=== PATIENT | male | born 1960 | race Caucasian/White ===

== ENCOUNTER 2016-11-16 02:39 | Emergency (ER) | payer OTHER ==
[2016-11-16] MEDS ORDERED: PROPARACAINE HCL 0.5% 300 GTTS/BOT SOLN.DROP ONE (03:09)
[2016-11-16] MEDS ORDERED: ERYTHROMYCIN OPHTH OINT 0.5% 1 APPLIC/TUBE ONE ×2 (03:49→04:01)
== END 2016-11-16 04:21 | disposition home or self-care (01) ==
LOC: ED 02:39
DX: T15.92XA Foreign body on external eye, part unspecified, left eye, initial encounter (principal); X58.XXXA Exposure to other specified factors, initial encounter; Y93.89 Activity, other specified
CPT/HCPCS: 99283; 99282; A9270 ×3

== ENCOUNTER 2016-11-17 11:18 | Emergency (ER) | payer OTHER ==
[2016-11-17] MEDS ORDERED: CEPHALEXIN 500 MG CAPSULE ONE (11:56)
--- NOTE | 2016-11-17 12:23 | RAD ---
HISTORY: drill bit injury to left wrist, at base of first metacarpal. Initial encounter. COMPARISON: None. TECHNIQUE: three view. Wrist Laterality:left FINDINGS: Bones: Hardware from prior fusion of the capitate and lunate is identified. Resection of the scaphoid is also noted. Degenerative spurring is noted along the distal radial ulnar joint. No fracture or dislocation. Hardware is intact without signs of failure or loosening. Joints: Moderate intercarpal joint space loss is present. Moderate to severe radiocarpal joint space loss. Soft tissue: Normal IMPRESSION: No fracture or dislocation. Postsurgical and degenerative changes as above.
== END 2016-11-17 13:00 | disposition home or self-care (01) ==
LOC: ED 11:18
DX: S61.532A Puncture wound without foreign body of left wrist, initial encounter (principal); W29.8XXA Contact with other powered hand tools and household machinery, initial encounter; Y93.H3 Activity, building and construction; Y92.69 Other specified industrial and construction area as the place of occurrence of the external cause
CPT/HCPCS: 73110; 99283 ×2; 29125; A9270